=== PATIENT | male | born 1960 | race American Indian/Alaskan Native ===

== ENCOUNTER 2020-09-03 14:58 | Emergency (ER) | payer OTHER ==
--- NOTE | 2020-09-03 15:36 | Event Note ---
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 Further treatment and workup at subsequent clinical providers discretion. Patient/guardian urged not to elope from the ED as their condition may be serious if not clinically assessed and managed. Initial orders include: Labs, EKG, CT head
--- NOTE | 2020-09-03 16:44 | Cat Scan Report ---
NONENHANCED CT SCAN OF THE HEAD: INDICATION / CLINICAL INFORMATION: 60 years Male; tingling left face/arm, HTN urgency, L eye blurry. TECHNIQUE: Routine CT head without contrast. All CT scans at this location are performed using CT dos e reduction for ALARA by means of automated exposure control. COMPARISON: None. FINDINGS: BRAIN / INTRACRANIAL CONTENTS: No acute hemorrhage, mass effect, midline shift, hydrocephalus, or acu te, large territorial infarct. No chronic infarct or focal atrophy. Normal brain volume and ventricul ar/sulcal size for age. Isolated low attenuation areas in the deep hemispheric white matter probably due to chronic small vessel disease; chronic appearing right thalamic lacune bordering posterior limb of right internal capsule CRANIOCERVICAL JUNCTION: No significant abnormality. ORBITS: No significant abnormality of visualized orbits. SINUSES / MASTOIDS: No significant abnormality of the visualized paranasal sinuses or mastoid air rafaela ls. ADDITIONAL FINDINGS: None. IMPRESSION: No acute focal parenchymal lesion Signer Name: Idalmis Franks MD Signed: 09/03/2020 4:39 PM Workstation Name: [id number]
[2020-09-03 16:46] LABS: Alanine Aminotransferase 6 units/L (7-56); Albumin 2.2 g/dL (3.9-5); BUN/Creatinine Ratio 11; Basophils # (Auto) 0.1 K/mm3 (0.0-0.1); Basophils % (Auto) 1.1 % (0.0-1.8); Blood Urea Nitrogen 12 mg/dL (9-20); Calcium 8.5 mg/dL (8.4-10.2); Eosinophils # (Auto) 0.1 K/mm3 (0.0-0.4); Eosinophils % (Auto) 1.4 % (0.0-4.3); Hematocrit 29.3 % (35.5-45.6); Hemoglobin 9.8 gm/dl (11.8-15.2); Hemolysis Index 2; Lymphocytes # (Auto) 1.6 K/mm3 (1.2-5.4); Lymphocytes % (Auto) 20.8 % (13.4-35.0); Mean Corpuscular HGB Conc 33 % (32-34); Mean Corpuscular Volume 84 fl (84-94); Monocytes # (Auto) 0.7 K/mm3 (0.0-0.8); Monocytes % (Auto) 8.5 % (0.0-7.3); Platelet Count 370 K/mm3 (140-440); Red Blood Count 3.47 M/mm3 (3.65-5.03); Red Cell Distribution Width 17.2 % (13.2-15.2)
[2020-09-03 16:57] LABS: INR 0.91 (0.87-1.13)
[2020-09-03 16:58] LABS: Partial Thromboplastin Time 30.2 Sec. (24.2-36.6)
[2020-09-03] MEDS ORDERED: cloNIDine 0.2 MG TAB PO STA (20:46)
--- NOTE | 2020-09-03 20:58 | Emergency Department Report ---
<THIEN HOOVER - Last Filed: 09/03/20 22:09> ED Eye Problem HPI - General Chief complaint: Neuro Symptoms/Deficit Stated complaint: BLURRY VISION Time Seen by Provider: 09/03/20 15:33 Source: patient Mode of arrival: Ambulatory Limitations: No Limitations - History of Present Illness Initial comments: 60-year-old -[place] male smoker with untreated hypertension presents emergency department complaining of left eye pressure with significant decreased vision which has been progressively worsening over the past about 3 days of an unknown etiology he reports having a vague vague headache and occasional tingling to his left face, to the eye doctor today to try to get glasses home advised him to follow-up with his primary care provider within advised him to be seen in the emergency department for further evaluation and treatment. States that he was checked for glaucoma does not recall them saying he had glaucoma but feels a lot of pressure buildup behind the with significantly dampens his vision out of the left eye to the point that we can only see shapes but no definitive objects. -: Gradual Location: left eye Place: home Associated Symptoms: none - Related Data Allergies Allergy/AdvReac Type Severity Reaction Status Date / Time No Known Allergies Allergy Unverified 09/03/20 15:36 ED Review of Systems Comment: All other systems reviewed and negative ED Past Medical Hx - Past Medical History Hx Hypertension: Yes - Surgical History Past Surgical History?: No - Social History Smoking Status: Current Every Day Smoker Substance Use Type: None ED Physical Exam - General Limitations: No Limitations General appearance: alert, in no apparent distress - Head Head exam: Present: atraumatic, normocephalic - Eye Eye exam: Present: normal appearance, PERRL, EOMI. Absent: scleral icterus, conjunctival injection, nystagmus - Expanded Eye Exam Expanded Pupils: Regular, Round: Bilateral, Reactive: Right (Is little sluggish) Sclera/Conjunctival: Normal Inspection: Bilateral Posterior chamber: Deferred: Bilateral Visual acuity (L) = 20/: 200 - ENT ENT exam: Present: mucous membranes moist - Neck Neck exam: Present: normal inspection, full ROM - Respiratory Respiratory exam: Present: normal lung sounds bilaterally. Absent: respiratory distress, wheezes, rales, chest wall tenderness, accessory muscle use - Cardiovascular Cardiovascular Exam: Present: regular rate, normal rhythm. Absent: systolic murmur, diastolic murmur, rubs, gallop - GI/Abdominal GI/Abdominal exam: Present: soft, normal bowel sounds - Rectal Rectal exam: Present: deferred - Extremities Exam Extremities exam: Present: normal inspection - Back Exam Back exam: Present: normal inspection - Neurological Exam Neurological exam: Present: alert, oriented X3 - Psychiatric Psychiatric exam: Present: normal affect, normal mood - Skin Skin exam: Present: warm, dry, intact, normal color. Absent: rash ED Course - Consultations Consultation #1: 09/03/20 21:03 Case was discussed with teleneuro who was at bedside evaluating Mr. Mobley and recommended admission with ophthalmology consult the also recommended a nonemergent MRI and CT scan of the neck and hypertensive management with a goal of systolic of 180-190. As well is taking a 325 mg aspirin on tomorrow/on admission. She also advised results is outside the intervention window.. Plan is to now consult with Jayson please see consult note via Dr. Ortiz. 09/03/20 22:09 ED Medical Decision Making - Lab Data Result diagrams: 09/03/20 16:08 09/03/20 16:08 - Radiology Data Radiology results: report reviewed Referring Physician:NICOLE MARKSPatient Name:JOVITA MOBLEYPatient ID:[id number] of :[id number]:MaleAccession:[id number] Date:[id number] Status:[place] [address] Cat Scan Report Signed Patient: JOVITA MOBLEY MR#: [id number] : 1960 Acct:[id number] Age/Sex: 60 / M ADM Date: 09/03/20 Loc: ED Attending Dr: Ordering Physician: ISMAEL SABILLON Date of Service: 09/03/20 Procedure(s): CT head/brain wo con Accession Number(s): [id number] cc: ISMAEL SABILLON NONENHANCED CT SCAN OF THE HEAD: INDICATION / CLINICAL INFORMATION: 60 years Male; tingling left face/arm, HTN urgency, L eye blurry. TECHNIQUE: Routine CT head without contrast. All CT scans at this location are performed using CT dose reduction for ALARA by means of automated exposure control. COMPARISON: None. FINDINGS: BRAIN / INTRACRANIAL CONTENTS: No acute hemorrhage, mass effect, midline shift, hydrocephalus, or acute, large territorial infarct. No chronic infarct or focal atrophy. Normal brain volume and ventricular/sulcal size for age. Isolated low attenuation areas in the deep hemispheric white matter probably due to chronic small vessel disease; chronic appearing right thalamic lacune bordering posterior limb of right internal capsule CRANIOCERVICAL JUNCTION: No significant abnormality. ORBITS: No significant abnormality of visualized orbits. SINUSES / MASTOIDS: No significant abnormality of the visualized paranasal sinuses or mastoid air cells. ADDITIONAL FINDINGS: None. IMPRESSION: No acute focal parenchymal lesion Signer Name: Idalmis Franks MD Signed: 09/03/2020 4:39 PM Workstation Name: [id number] Transcribed By: BS Dictated By: Idalmis Ibarra MD Electronically Authenticated By: Idalmis Ibarra MD Signed Date/Time: 09/03/201638 DD/ 36 TD/TT: - Medical Decision Making 60-year-old [place] male with 3-day history of vision loss normal CT scan and laboratory findings have a blood pressure significantly elevated to 226/120 and appears to be symptomatic with the with the visual changes and tingling. ED Disposition Clinical Impression: Hypertensive emergency, Blurry vision, left eye, Noncompliance Disposition: DC/TX-70 ANOTHER TYPE HLTHCARE Condition: Critical Instructions: Hypertension (ED) <SARATH ORTIZ III - Last Filed: 09/03/20 23:22> ED Review of Systems ROS: Stated complaint: BLURRY VISION Other details as noted in HPI Comment: All other systems reviewed and negative ED Past Medical Hx - Past Medical History Previous Medical History?: Yes Hx Hypertension: Yes - Surgical History Past Surgical History?: No - Family History Family history: no significant - Social History Smoking Status: Current Every Day Smoker Substance Use Type: None ED Physical Exam - General General appearance: alert, in no apparent distress - Head Head exam: Present: atraumatic, normocephalic - Eye Eye exam: Present: normal appearance - ENT ENT exam: Present: mucous membranes moist - Neck Neck exam: Present: normal inspection - Respiratory Respiratory exam: Present: normal lung sounds bilaterally. Absent: respiratory distress - Cardiovascular Cardiovascular Exam: Present: regular rate, normal rhythm. Absent: systolic murmur, diastolic murmur, rubs, gallop - GI/Abdominal GI/Abdominal exam: Present: soft, normal bowel sounds - Rectal Rectal exam: Present: deferred - Extremities Exam Extremities exam: Present: normal inspection - Back Exam Back exam: Present: normal inspection - Neurological Exam Neurological exam: Present: alert, oriented X3 - Psychiatric Psychiatric exam: Present: normal affect, normal mood - Skin Skin exam: Present: warm, dry, intact, normal color. Absent: rash ED Course Vital Signs 09/03/20 15:36 Temperature 98.2 F Pulse Rate 85 Respiratory 18 Rate Blood Pressure 210/115 O2 Sat by Pulse 100 Oximetry - Reevaluation(s) Reevaluation #1: I reviewed the findings and management of this patient in real-time and I have personally seen and examined this patient and participated in the decision making for this patient with the midlevel. Patient is a 60-year-old male that presents emergency with blurry vision to the left eye and hypertensive emergency. Patient will be given clonidine and if it remains high patient will be given 5 mg of Lopressor. I examined the patient. Patient's lung sounds are clear to auscultation. Patient's CV exam shows a normal S1 and S2, No murmurs noted. Neuro exam shows the patient is alert and oriented x4, left eye is completely blurry and patient is unable to make out shapes or letters. Patient has [facility]. [facility] has recommended the patient be seen by neuro. Neuro will see the patient and we will receive the recommendations and I will discussed the case again with [employer]. 09/03/20 21:18 Reevaluation #2: Patient's blood pressure is much better. Patient still having left eye blurry vision. I discussed all results and clinical findings with patient. I discussed plan of care with patient. Patient agrees with plan of care and transfer. Patient is stable for transfer. 09/03/20 23:21 - Consultations Consultation #2: I discussed the case with Dr. Vargas and she has accepted the patient to be transferred to [facility]. The accepting physician at [facility] will be Dr. Murguia the hospitalist. Transfer form signed. 09/03/20 23:05 ED Medical Decision Making - Lab Data Result diagrams: 09/03/20 16:08 09/03/20 16:08 - Radiology Data Radiology results: report reviewed - Differential Diagnosis CVA, blurry vision, hypertensive emergency, encephalopathy, Critical Care Time: Yes Critical care time in (mins) excluding proc time.: 35 Critical care attestation.: If time is entered above; I have spent that time in minutes in the direct care of this critically ill patient, excluding procedure time. Critical Care Time: 35 MINUTES ED Disposition Is pt being admited?: No Does the pt Need Aspirin: No Time of Disposition: 23:17
[2020-09-03] MEDS ORDERED: METOPROLOL TARTRATE 5 MG/5 ML INJ IV ONE (21:25)
--- NOTE | 2020-09-03 22:02 | Emergency Department Report ---
ED Neuro Deficit HPI - General Chief Complaint: Neuro Symptoms/Deficit Stated Complaint: BLURRY VISION Time Seen by Provider: 09/03/20 15:33 Source: patient Mode of arrival: Ambulatory Limitations: No Limitations - Related Data Allergies/Adverse Reactions: Allergies Allergy/AdvReac Type Severity Reaction Status Date / Time No Known Allergies Allergy Unverified 09/03/20 15:36 ED Review of Systems ROS: Stated complaint: BLURRY VISION Other details as noted in HPI ED Past Medical Hx - Past Medical History Hx Hypertension: Yes - Surgical History Past Surgical History?: No - Social History Smoking Status: Current Every Day Smoker Substance Use Type: None ED Neuro Physical Exam - General Limitations: No Limitations General appearance: alert, in no apparent distress ED Course Vital Signs 09/03/20 15:36 Temperature 98.2 F Pulse Rate 85 Respiratory 18 Rate Blood Pressure 210/115 O2 Sat by Pulse 100 Oximetry - Consultations Consultation #1: 09/03/20 22:01 [facility] Tele[facility]urology Consult Services Stat Consult Date of Service: 09/03/2020 21:33:48 Comments/Sign-Out: Patient with poorly controlled hypertension who presents with 3 day history of monocular visual changes, no VF cut and no objective visual deficits. Cannot exclude transient monocular visual loss given risk factors of HTN and smoking vs hypertensive urgency. Would obtain imaging of carotids and MRI brain. Outside t herapeutic window for intervention. Cautious lowering of BP. CT HEAD: Showed No Acute Hemorrhage or Acute Core Infarct Reviewed Metrics: [employer] Notification Time: 09/03/2020 21:32:01 Stamp Time: 09/03/2020 21:33:48 Callback Response Time: 09/03/2020 21:35:11 Video Start Time: 09/03/2020 21:47:53 Our recommendations are outlined below. Recommendations: Antiplatelet Therapy Imaging Studies: MRI Head MRA Head and Neck Without Contrast When Available - Stroke Protocol Disposition: Neurology Follow Up Recommended Sign Out: Discussed with Emergency Department Provider Chief Complaint: visual changes, left eye visual loss History of Present Illness: Patient is a 60 year old Female. Patient with poorly controlled hypertension (noncompliant with medication) tobacco dependence who presents with three or four day history of visual loss. He was finding it hard to drive. He describes it as blurry and double and affects only the left eye. He states if left eye is closed he is able to see better. Currently no diplopia. BP on arrival >200 systolic. 232 while in ED. No weakness, no dizziness, no dysarthria. Past Medical History: Hypertension There is NO history of Diabetes Mellitus There is NO history of Hyperlipidemia There is NO history of Atrial Fibrillation There is NO history of Coronary Artery Disease There is NO history of Stroke Anticoagulant use: No Antiplatelet use: No Examination: BP(210/115), Pulse(85), Blood Glucose(86) 1A: Level of Consciousness - Alert; keenly responsive + 0 1B: Ask Month and Age - Both Questions Right + 0 1C: Blink Eyes & Squeeze Hands - Performs Both Tasks + 0 2: Test Horizontal Extraocular Movements - Normal + 0 3: Test Visual Pineda - No Visual Loss + 0 4: Test Facial Palsy (Use Grimace if Obtunded) - Normal symmetry + 0 5A: Test Left Arm Motor Drift - No Drift for 10 Seconds + 0 5B: Test Right Arm Motor Drift - No Drift for 10 Seconds + 0 6A: Test Left Leg Motor Drift - No Drift for 5 Seconds + 0 6B: Test Right Leg Motor Drift - No Drift for 5 Seconds + 0 7: Test Limb Ataxia (FNF/Heel-Luke) - No Ataxia + 0 8: Test Sensation - Normal; No sensory loss + 0 9: Test Language/Aphasia - Normal; No aphasia + 0 10: Test Dysarthria - Normal + 0 11: Test Extinction/Inattention - No abnormality + 0 NIHSS Score: 0 Patient/Family was informed the Neurology Consult would happen via TeleHealth consult by way of interactive audio and video telecommunications and consented to receiving care in this manner. Due to the immediate potential for life-threatening deterioration due to underlying acute neurologic illness, I spent 20 minutes providing critical care. This time includes time for face to face visit via telemedicine, review of medical records, imaging studies and discussion of findings with providers, the patient and/or family. Dr Analy Suresh [facility] Case [id number] - Lab Data Result diagrams: 09/03/20 16:08 09/03/20 16:08 Lab Results 09/03/20 09/03/20 09/03/20 Range/Units 16:08 16:08 16:08 WBC 7.8 (4.5-11.0) K/mm3 RBC 3.47 L (3.65-5.03) M/mm3 Hgb 9.8 L (11.8-15.2) gm/dl Hct 29.3 L (35.5-45.6) % MCV 84 (84-94) fl MCH 28 (28-32) pg MCHC 33 (32-34) % RDW 17.2 H (13.2-15.2) % Plt Count 370 (140-440) K/mm3 Lymph % (Auto) 20.8 (13.4-35.0) % [place] % (Auto) 8.5 H (0.0-7.3) % Eos % (Auto) 1.4 (0.0-4.3) % Baso % (Auto) 1.1 (0.0-1.8) % Lymph # (Auto) 1.6 (1.2-5.4) K/mm3 [place] # (Auto) 0.7 (0.0-0.8) K/mm3 Eos # (Auto) 0.1 (0.0-0.4) K/mm3 Baso # (Auto) 0.1 (0.0-0.1) K/mm3 Seg Neutrophils % 68.2 (40.0-70.0) % Seg Neutrophils # 5.3 (1.8-7.7) K/mm3 PT 12.1 L (12.2-14.9) Sec. INR 0.91 (0.87-1.13) APTT 30.2 (24.2-36.6) Sec. Sodium 139 (137-145) mmol/L Potassium 3.5 L (3.6-5.0) mmol/L Chloride 103.9 (98-107) mmol/L Carbon Dioxide 27 (22-30) mmol/L Anion Gap 12 mmol/L BUN 12 (9-20) mg/dL Creatinine 1.1 (0.8-1.3) mg/dL Estimated GFR > 60 ml/min BUN/Creatinine Ratio 11 % Glucose 86 (75-100) mg/dL Calcium 8.5 (8.4-10.2) mg/dL Total Bilirubin < 0.20 (0.1-1.2) mg/dL AST 12 (5-40) units/L ALT 6 L (7-56) units/L Alkaline Phosphatase 86 (35-129) units/L Troponin T < 0.010 (0.00-0.029) ng/mL Total Protein 5.1 L (6.3-8.2) g/dL Albumin 2.2 L (3.9-5) g/dL Albumin/Globulin Ratio 0.8 % Critical care attestation.: If time is entered above; I have spent that time in minutes in the direct care of this critically ill patient, excluding procedure time. ED Disposition Condition: Stable Referrals: ARMIDA MORE MD [Primary Care Provider] - 3-5 Days
[2020-09-04 04:39] VITALS: BP 191/96
== END 2020-09-04 04:55 | disposition other institution (70) ==
LOC: ED 14:58
DX: H53.8 Other visual disturbances (principal); I10 Essential (primary) hypertension; I16.0 Hypertensive urgency; F12.10 Cannabis abuse, uncomplicated; Z98.890 Other specified postprocedural states; Z88.0 Allergy status to penicillin; Z88.6 Allergy status to analgesic agent
CPT/HCPCS: 36415; 70450; 80053; 84484; 85025; 85610; 85730; 93005; 96374